=== PATIENT | female | born 1985 | race African-American/Black ===

== ENCOUNTER 2016-05-25 14:37 | Emergency (ER) | payer BC ==
[~2016-05-25] VITALS: Ht 160 cm; Wt 72.0 kg
[2016-05-25 14:40] VITALS: BP 129/67; PULSE 79; RESP 16; TEMP 98.1; O2SAT 100
--- NOTE | 2016-05-25 15:36 | PD ---
HPI Chief Complaint: Chest Pain Time Seen by Provider: 15:31 Travel History International Travel<30 days: No Contact w/Intl Traveler<30days: No Traveled to known affect area: No History of Present Illness HPI Patient is a 30-year-old female presenting to the emergency department for evaluation of chest pain. Patient states the pain started last week, resolved on its own and then started again last night. Patient states the pain is worse with movement it is localized to the right upper chest wall. She states the pain is relieved with ibuprofen. She denies any nausea, vomiting, shortness of breath, cough, fever, chills. Patient states the pain is a 10 out of 10 when it is at its worse and feels cramping in nature. Patient does reek report that she had a cold 2 weeks ago. She denies any significant past medical history. She reports a family history of hypertension but no history of early heart disease otherwise. PFSH Past Medical History Anemia: Yes ?: Not LMP: 04/20/16 : 5 Para: 5 Tubal Ligation: Yes Past Surgical History Gynecologic Surgery: Yes (tubal ligation) Social History Alcohol Use: No Tobacco Use: No Substance Use: No Allergies-Medications (Allergen,Severity, Reaction): Coded Allergies: No Known Allergies (Verified , 05/25/16) Reported Meds & Prescriptions Reported Meds & Active Scripts Active Ibuprofen 600 Mg Tab 600 Mg PO Q8HR PRN Review of Systems Except as stated in HPI: all other systems reviewed are Neg Cardiovascular: Positive: Chest Pain or Discomfort Respiratory: Positive: Pleuritic Pain Physical Exam Narrative GENERAL: Well-developed, well-nourished, alert female. Resting comfortably in no acute distress. SKIN: Warm and dry. HEAD: Atraumatic. Normocephalic. EYES: Pupils equal and round. No scleral icterus. No injection or drainage. ENT: No nasal bleeding or discharge. Mucous membranes pink and moist. NECK: Trachea midline. No JVD. CARDIOVASCULAR: Regular rate and rhythm. No murmur appreciated. RESPIRATORY: No accessory muscle use. Clear to auscultation. Breath sounds equal bilaterally. GASTROINTESTINAL: Abdomen soft, non-tender, nondistended. Hepatic and splenic margins not palpable. MUSCULOSKELETAL: No obvious deformities. No clubbing. No cyanosis. No edema. Tenderness to palpation to right anterior chest wall. NEUROLOGICAL: Awake and alert. No obvious cranial nerve deficits. Motor grossly within normal limits. Normal speech. PSYCHIATRIC: Appropriate mood and affect; insight and judgment normal. Data Data Last Documented VS Vital Signs Date Time Temp Pulse Resp B/P Pulse Ox O2 Delivery O2 Flow Rate FiO2 05/25/16 17:23 77 16 142/83 100 Room Air 05/25/16 14:40 98.1 Orders Electrocardiogram (05/25/16 15:29) Basic Metabolic Panel (Bmp) (05/25/16 15:29) Ckmb (Isoenzyme) Profile (05/25/16 15:29) Comprehensive Metabolic Panel (05/25/16 15:29) Magnesium (Mg) (05/25/16 15:29) Prothrombin Time / Inr (Pt) (05/25/16 15:29) Act Partial Throm Time (Ptt) (05/25/16 15:29) Troponin I (05/25/16 15:29) Chest, Single Ap (05/25/16 15:29) Ed Urine Pregnancytest Poc (05/25/16 15:29) CKMB (05/25/16 15:54) CKMB% (05/25/16 15:54) Ibuprofen (Motrin) (05/25/16 17:30) Labs Laboratory Tests Test 05/25/16 15:54 Prothrombin Time 10.8 SEC Prothromb Time International 1.0 RATIO Ratio Activated Partial 25.1 SEC Thromboplast Time Sodium Level 143 MEQ/L Potassium Level 3.8 MEQ/L Chloride Level 109 MEQ/L Carbon Dioxide Level 24.4 MEQ/L Anion Gap 10 MEQ/L Blood Urea Nitrogen 11 MG/DL Creatinine 0.78 MG/DL Estimat Glomerular Filtration 105 ML/MIN Rate Random Glucose 57 MG/DL Calcium Level 8.2 MG/DL Magnesium Level 1.8 MG/DL Total Bilirubin 0.2 MG/DL Aspartate Amino Transf 11 U/L (AST/SGOT) Alanine Aminotransferase 19 U/L (ALT/SGPT) Alkaline Phosphatase 76 U/L Total Creatine Kinase 162 U/L Creatine Kinase MB 1.6 NG/ML Troponin I LESS THAN 0.02 NG/ML Total Protein 7.4 GM/DL Albumin 3.4 GM/DL MDM Medical Decision Making Medical Screen Exam Complete: Yes Emergency Medical Condition: Yes Interpretation(s) Vital Signs Date Time Temp Pulse Resp B/P Pulse Ox O2 Delivery O2 Flow Rate FiO2 3/14/17 14:40 98.1 79 16 129/67 100 Differential Diagnosis Pleurisy versus costochondritis versus acute coronary syndrome versus pulmonary embolism versus other Narrative Course Patient is a 30-year-old female presenting to emergency Department for evaluation of chest pain. Pain is reproducible on palpation appears more pleuritic in nature however chest pain protocol was initiated. Workup initiated triage, care patient will be transferred to provide her with a medical bed is available. Scripts Ibuprofen 600 Mg [id number] Mg PO Q8HR PRN (PAIN) #20 TAB Ref 0 Prov:Danita Mitchell DO 05/25/16 Herlinda Sanz May 25, 2016 15:36
--- NOTE | 2016-05-25 16:00 | RADRPT ---
EXAM DATE/TIME: 05/25/2016 15:43 [facility] COMPARISON: No previous studies available for comparison. INDICATIONS : Chest pain for the past week. MEDICAL HISTORY : None. SURGICAL HISTORY : None. ENCOUNTER: Initial ACUITY: 1 week PAIN SCORE: 5/10 LOCATION: Bilateral chest FINDINGS: A single view of the chest demonstrates the lungs to be symmetrically aerated without evidence of mas s, infiltrate or effusion. The cardiomediastinal contours are unremarkable. Osseous structures are intact. CONCLUSION: Normal examination. Arnold Castañeda Jr., MD on May 25, 2016 at 15:58 Board Certified Radiologist. This report was verified electronically.
[2016-05-25 16:18] LABS: APTT (PATIENT) 25.1 SEC (24.3-30.1); PROTHROMBIN TIME - PATIENT 10.8 SEC (9.8-11.6)
[2016-05-25 16:31] LABS: ANION GAP 10 MEQ/L (5-15); AST (GOT) 11 U/L (15-37); BICARBONATE 24.4 MEQ/L (21.0-32.0); BLOOD UREA NITROGEN 11 MG/DL (7-18); CHLORIDE 109 MEQ/L (98-107); GLOMERULAR FILTRATION RATE 105 ML/MIN (>89); MAGNESIUM 1.8 MG/DL (1.5-2.5); POTASSIUM 3.8 MEQ/L (3.5-5.1); SODIUM (NA) 143 MEQ/L (136-145)
[2016-05-25 16:34] LABS: ALKALINE PHOSPHATASE 76 U/L (45-117); ALT (GPT) 19 U/L (10-53); CREATINE KINASE 162 U/L (26-192); TOTAL BILIRUBIN ADULT 0.2 MG/DL (0.2-1.0)
[2016-05-25 16:47] LABS: CKMB 1.6 NG/ML (0.5-3.6)
[2016-05-25 17:23] VITALS: BP 142/83; PULSE 77; RESP 16; O2SAT 100
[2016-05-25] MEDS ORDERED: IBUPROFEN 600 MG TAB PO ONE (17:30)
--- NOTE | 2016-05-25 17:41 | PD ---
Physical Exam Narrative Pt was initially seen at triage and transferred to medical bed. 30yo F with no PMH presents to the ED with c/o right upper chest pain for 2 days. It is sharp, worst with movement. Pt has been moving and lifting heavy furniture. Denies any sob, n/v, abdominal pain, focal weakness or numbness. Pt denies any family history of sudden cardiac deaths. No cardiac risk factors. Pain is very musculoskeletal. It had resolved after ibuprofen. Pt currently has no pain. Labs reviewed, negative troponin. Glucose is low at 57 but pt is tolerating PO. CXR negative. Return precautions given. Data Data Last Documented VS Vital Signs Date Time Temp Pulse Resp B/P Pulse Ox O2 Delivery O2 Flow Rate FiO2 05/25/16 17:23 77 16 142/83 100 Room Air 05/25/16 14:40 98.1 Orders Electrocardiogram (05/25/16 15:29) Basic Metabolic Panel (Bmp) (05/25/16 15:29) Ckmb (Isoenzyme) Profile (05/25/16 15:29) Comprehensive Metabolic Panel (05/25/16 15:29) Magnesium (Mg) (05/25/16 15:29) Prothrombin Time / Inr (Pt) (05/25/16 15:29) Act Partial Throm Time (Ptt) (05/25/16 15:29) Troponin I (05/25/16 15:29) Chest, Single Ap (05/25/16 15:29) Ed Urine Pregnancytest Poc (05/25/16 15:29) CKMB (05/25/16 15:54) CKMB% (05/25/16 15:54) Ibuprofen (Motrin) (05/25/16 17:30) Labs Laboratory Tests Test 05/25/16 15:54 Prothrombin Time 10.8 SEC Prothromb Time International 1.0 RATIO Ratio Activated Partial 25.1 SEC Thromboplast Time Sodium Level 143 MEQ/L Potassium Level 3.8 MEQ/L Chloride Level 109 MEQ/L Carbon Dioxide Level 24.4 MEQ/L Anion Gap 10 MEQ/L Blood Urea Nitrogen 11 MG/DL Creatinine 0.78 MG/DL Estimat Glomerular Filtration 105 ML/MIN Rate Random Glucose 57 MG/DL Calcium Level 8.2 MG/DL Magnesium Level 1.8 MG/DL Total Bilirubin 0.2 MG/DL Aspartate Amino Transf 11 U/L (AST/SGOT) Alanine Aminotransferase 19 U/L (ALT/SGPT) Alkaline Phosphatase 76 U/L Total Creatine Kinase 162 U/L Creatine Kinase MB 1.6 NG/ML Troponin I LESS THAN 0.02 NG/ML Total Protein 7.4 GM/DL Albumin 3.4 GM/DL [facility] Supervised Visit with LU: Yes Interpretation(s) EKG: NSR 75bpm. TWI V2. No ST segment elevation or depression. Diagnosis Primary Impression: Musculoskeletal pain Patient Instructions: General Instructions Departure Forms: Tests/Procedures Additional Instruction: Please follow up with your PMD in 3-7 days. Return to the ED if symptoms worsen. Med/Other Pt SpecificInfo: Prescription(s) given Scripts Ibuprofen 600 Mg [id number] Mg PO Q8HR PRN (PAIN) #20 TAB Ref 0 Prov:Danita Mitchell DO 05/25/16 Disposition: 01 DISCHARGE HOME Condition: Stable Danita Mitchell DO May 25, 2016 17:41
[2016-05-25] MEDS ORDERED: IBUP-232 PO (19:29)
--- NOTE | 2016-05-27 14:15 | EKG ---
Date Performed: 05/25/2016 Time Performed: 16:01:50 PTAGE: 30 years EKG: Sinus rhythm NORMAL ECG NO PREVIOUS TRACING DOCTOR: Faisal Linder Interpretating Date/Time 05/28/2016 15:52:03
== END 2016-05-25 19:37 | disposition home or self-care (01) ==
LOC: NEPA 14:37
DX: R07.89 Other chest pain (principal); D64.9 Anemia, unspecified
CPT/HCPCS: 71010; 80053; 82550; 82552; 83735; 84484; 85610; 85730; 93005